=== PATIENT | male | born 1970 | race Hispanic/Latino ===

== ENCOUNTER → 2018-03-16 | Day surgery (SDC) | payer OTHER ==
[~2018-03-16] MED LIST: BUPIVACAINE 0.25%/EPI 30ML SDV INJ ONE; DEXAMETHASONE SOD PHOS INJ 4 MG/ML VIAL ONE; FENTANYL CITRATE/PF 100MCG/2 ML INJ ONE; KETOROLAC TROMETHAMINE 30 MG/ML VIAL ONE; LIDOCAINE HCL 2% LOCAL INJ 5 ML SDV VIAL INJ ONE; ONDANSETRON HCL INJ 2 MG/ML VIAL ONE; PROPOFOL IV EMULSION 10 MG/ML 20 ML VIAL ONE; SEVOFLURANE INHAL SOLN 250 ML PEN BTL ONE
[2018-03-16 11:51] LABS: BASOPHILS % 0.4 % (0.0-1.0); EOSINOPHILS # (AUTO) 0.1 (0.0-0.4); EOSINOPHILS % 0.9 % (0.0-6.0); HEMATOCRIT 40.7 % (38.2-49.6); HEMOGLOBIN 14.1 g/dL (14.0-18.0); LYMPHOCYTES # (AUTO) 2.1 (1.0-3.2); LYMPHOCYTES % 28.3 % (18.0-39.1); MEAN CORPUSCULAR HEMOGLOBIN 33.8 pg (28-32); MEAN CORPUSCULAR HGB CONC 34.6 g/dL (31-35); MEAN CORPUSCULAR VOLUME 97.6 fL (81-99); MONOCYTES # (AUTO) 0.6 (0.2-0.8); MONOCYTES % 8.1 % (4.4-11.3); NEUTROPHILS # (AUTO) 4.7 (2.1-6.9); PLATELET COUNT 172 x10e3/uL (140-360); RED BLOOD COUNT 4.17 x10e6/uL (4.3-5.7); RED CELL DISTRIBUTION WIDTH 12.1 % (11.7-14.4)
--- NOTE | 2018-03-16 13:53 | Operative Report ---
DATE OF PROCEDURE: March 16, 2018 PREOPERATIVE DIAGNOSIS: Foreign body of the left thigh. POSTOPERATIVE DIAGNOSIS: Foreign body of the left thigh. OPERATION PERFORMED: Exploration of left thigh and removal of foreign body under C-arm guidance. ANESTHESIA: General. COMPLICATIONS: None. ESTIMATED BLOOD LOSS: Minimal. DESCRIPTION OF PROCEDURE: With the patient lying in bed in the supine position under good general anesthesia, the C-arm was utilized to identify the position of the foreign body, which was just below the entrance point and about residential through into the thigh. The left thigh was then prepped with Betadine solution and draped in the usual manner. The entrance wound was then enlarged on both hands and dissected downward and below the fascia, a metallic foreign body was found which was removed. After this was done, the wound was then copiously lavaged with dilute Betadine solution. The fascia was then reapproximated with interrupted sutures of 2-0 Vicryl and the skin was closed with interrupted vertical mattress sutures of 3-0 silk. A dressing was applied. Sponge, lap, and needle count was correct. Patient tolerated the procedure well and returned to the recovery room in stable condition. Job#: [id number] JITim
== END | disposition home or self-care (01) ==
LOC: OR 09:41 → EDSEX 09:41
PROVIDERS: ATTEND Surgery
DX: S71.122A Laceration with foreign body, left thigh, initial encounter (principal); I10 Essential (primary) hypertension; F41.9 Anxiety disorder, unspecified; F17.200 Nicotine dependence, unspecified, uncomplicated; X58.XXXA Exposure to other specified factors, initial encounter; Y92.89 Other specified places as the place of occurrence of the external cause
CPT/HCPCS: 27372; 36415; 76000; 85025; 93005; J1100; J1885; J2001; J2405

== ENCOUNTER 2019-07-11 08:18 | Emergency (ER) | payer BC ==
[~2019-07-11] VITALS: Ht 175.3 cm; Wt 93.9 kg
[2019-07-11] MEDS ORDERED: IBUPROFEN 600 MG TAB PO STA (08:26)
--- NOTE | 2019-07-11 08:31 | NUR ---
Pt denies any CP, SOB, n/v or dizziness at the present time. States has not seen a PCP in a long time.
--- NOTE | 2019-07-11 10:16 | Diagnostic Imaging Report ---
EXAM: ANKLE 3+ VIEWS LEFT DATE: 07/11/2019 8:26 AM INDICATION: Left ankle pain COMPARISON: None FINDINGS: There is no evidence for acute fracture or dislocation. The ankle mortise is maintained. Bony mineralization is within normal limits. No focal lytic or blastic abnormality is identified. Mild plantar calcaneal spurring noted. The soft tissues are unremarkable without evidence for radiopaque foreign body. IMPRESSION: No acute radiographic abnormality identified within the left ankle. Signed by: Dr. Ed Ruth MD on 07/11/2019 10:13 AM
== END 2019-07-11 10:00 | disposition home or self-care (01) ==
LOC: ER 08:21
DX: M25.572 Pain in left ankle and joints of left foot (principal); G89.29 Other chronic pain
CPT/HCPCS: 99283

== ENCOUNTER 2021-02-15 14:24 | Emergency (ER) | payer BC ==
[~2021-02-15] VITALS: Ht 175.3 cm; Wt 90.7 kg
== END 2021-02-15 15:09 | disposition home or self-care (01) ==
LOC: ER 14:45
DX: M25.562 Pain in left knee (principal); M23.92 Unspecified internal derangement of left knee; I10 Essential (primary) hypertension; E78.5 Hyperlipidemia, unspecified
CPT/HCPCS: 99283

== ENCOUNTER 2022-12-24 15:08 | Emergency (ER) | payer BC ==
[~2022-12-24] VITALS: Ht 175.3 cm; Wt 90.7 kg
[2022-12-24 15:28] LABS: BASOPHILS % 0.6 % (0.0-1.0); EOSINOPHILS # (AUTO) 0.1 (0.0-0.4); EOSINOPHILS % 1.1 % (0.0-6.0); HEMATOCRIT 43.7 % (38.2-49.6); HEMOGLOBIN 14.9 g/dL (14.0-18.0); LYMPHOCYTES # (AUTO) 2.4 (1.0-3.2); LYMPHOCYTES % 33.9 % (18.0-39.1); MEAN CORPUSCULAR HEMOGLOBIN 33.5 pg (28-32); MEAN CORPUSCULAR HGB CONC 34.1 g/dL (31-35); MEAN CORPUSCULAR VOLUME 98.2 fL (81-99); MONOCYTES # (AUTO) 0.7 (0.2-0.8); MONOCYTES % 10.2 % (4.4-11.3); NEUTROPHILS # (AUTO) 3.8 (2.1-6.9); NEUTROPHILS % 53.8 % (38.7-80.0); PLATELET COUNT 242 x10e3/uL (140-360); RED BLOOD COUNT 4.45 x10e6/uL (4.3-5.7); RED CELL DISTRIBUTION WIDTH 12.6 % (11.7-14.4)
[2022-12-24 15:39] LABS: CLARITY,URINE SL CLOUDY (CLEAR); COLOR,URINE YELLOW (YELLOW); KETONES,URINE NEGATIVE (NEGATIVE); LEUKOCYTE ESTERASE ,URINE TRACE (NEGATIVE); NITRITE,URINE NEGATIVE (NEGATIVE); PROTEIN,URINE DIPSTICK NEGATIVE (NEGATIVE); URINE UROBILINOGEN 1 mg/dL (0.2 - 1)
[2022-12-24 15:45] LABS: ANION GAP 17.9 mmol/L (8-16); CALCIUM 8.7 mg/dL (8.4-10.2); CREATININE, SERUM 1.13 mg/dL (0.72-1.25); POTASSIUM 3.9 mmol/L (3.5-5.1)
[2022-12-24 15:55] LABS: AMORPHOUS SEDIMENT,URINE MODERATE (FEW); BACTERIA,URINE FEW /HPF; EPITHELIAL CELLS,URINE FEW /LPF; WBC,URINE (MAN) 0-5 /HPF (0-5)
[2022-12-24 17:24] VITALS: BP 154/85; PULSE 65; RESP 16; TEMP 98.4; O2SAT 100
== END 2022-12-24 17:02 | disposition home or self-care (01) ==
LOC: ER 15:16
DX: R50.9 Fever, unspecified (principal); R31.29 Other microscopic hematuria; I10 Essential (primary) hypertension; E78.5 Hyperlipidemia, unspecified; Z87.442 Personal history of urinary calculi
CPT/HCPCS: 36415; 74176; 80048; 81001; 85025; 87086; 99284